=== PATIENT | female | born 1975 | race Two or more races ===

== ENCOUNTER 2020-11-28 14:17 | Emergency (ER) | payer SELFPAY ==
[2020-11-28] MEDS ORDERED: Sodium Chloride 0.9% 1,000 ML IV ONE (14:49)
[2020-11-28] MEDS ORDERED: Sodium Chloride 0.9% 2.5 ML Syringe FLUSH PRN (14:49)
[2020-11-28] MEDS ORDERED: Sodium Chloride 0.9% 10 ML Syringe FLUSH PRN (14:49)
--- NOTE | 2020-11-28 14:51 | EDM.PDOC ---
ED HPI GENERAL MEDICAL PROBLEM - General Chief Complaint: Abdominal Pain Stated Complaint: TROUBLE BREATHING Time Seen by Provider: 11/28/20 14:44 Source of Information: Reports: Patient History Limitations: Reports: No Limitations - History of Present Illness INITIAL COMMENTS - FREE TEXT/NARRATIVE: HISTORY AND PHYSICAL: History of present illness: The following information was obtained using a machine ii cutter tablet. The patient is a 44-year-old female that presents to the emergency department with complaints of abdominal pain and bloating that started 2 weeks ago. The patient states that after she eats she gets bloating and becomes short of breath and then becomes anxious. This morning the patient had a papaya shake became bloated and while in the car felt like she could not breathe. She also has a small pain on the left lower quad. The patient states that she does have some constipation and normally has hard stool. Patient denies any fever, chills, headache, change in vision, syncope or near syncope. Denies any chest pain, back pain, or cough. Denies any nausea, vomiting, diarrhea, or dysuria. Has not noted any blood in urine or stool. Patient has been eating and drinking appropriately. Review of systems: As per history of present illness and below otherwise all systems reviewed and negative. Past medical history: As per history of present illness and as reviewed below otherwise noncontributory. Surgical history: As per history of present illness and as reviewed below otherwise noncontributory. Social history: See social history for further information Family history: As per history of present illness and as reviewed below otherwise noncontributory. Physical exam: General: Well developed and well nourished. Alert and orientated x 3. Nontoxic in appearance and in no acute distress. Vital signs are stable and have been reviewed by me. Nursing notes were reviewed. HEENT: Atraumatic, normocephalic, pupils equal and reactive bilaterally, negative for conjunctival pallor or scleral icterus, mucous membranes moist, TMs normal bilaterally, throat clear, neck supple, nontender, trachea midline. No drooling or trismus noted. No meningeal signs. No hot potato voice noted. Lungs: Clear to auscultation bilaterally. No wheezes, rales, or rhonchi. Chest nontender. Normal work of breathing, no accessory muscles used. Heart: S1S2, regular rate and rhythm without overt murmur, gallops, or rubs. No JVD. No peripheral edema Abdomen: Soft, nondistended, nontender. Normoactive bowel sounds. Negative for masses or costovertebral tenderness. Skin: Intact, warm, dry. No lesions or rashes noted. Hematologic: No petechiae or purpra. Mucosa appropriate color and normal nail bed color and refill. Extremities: Atraumatic, moves all extremities per self without difficulty or deficits, negative for cords or calf pain. Neurovascular unremarkable. Neuro: Awake, alert, oriented. Cranial nerves II through XII unremarkable. Cerebellum unremarkable. Motor and sensory unremarkable throughout. Exam nonfocal. Psychiatric: Mood and affect are appropriate. Normal thought process. Answering questions appropriately. Notes: *This patient was seen and evaluated during the 2019 SARS-CoV-2 novel coronavirus pandemic period. Community viral transmission is ongoing at time of this encounter and the emergency department is operating under pandemic response procedures. Stated above the patient is a 44-year-old female who presents today with complaints of shortness of breath after she eats and starts to feel bloated. She states has been going on for about 2 weeks. She has no shortness of breath in the emergency room and does not feel bloated. Her exam was normal. She states that she feels bad knees while in the emergency room. I have ordered an abdominal work-up. The patient is agreeable with this plan. The patient's chest x-ray Impression: No acute cardiopulmonary process. The patient's CBC, CMP, lipase and UA were all unremarkable. CT abdomen pelvis IMPRESSION: 1. Grade 2 anterolisthesis of L5 on S1 due to bilateral spondylolysis, which appears chronic. 2. Otherwise no acute process to explain patient`s pain. Using the machine ii cutter tablet I discussed the findings with the patient. Instructed the patient I feel that her chronic constipation could be causing a gas buildup which then she feels full and bloated and becomes anxious which induces the shortness of breath. The patient stated that she has been under high stress and feels like this is adding to it. I spoke with the patient about needing good diet hygiene and to have regular bowel movements. The patient is agreeable to Metamucil and MiraLAX as needed. I have talked with the patient about today's findings, in addition to providing specific details for plan of care. Reassessment at the time of disposition demonstrates that the patient is in no acute distress. The patient is stable for discharge, counseling was provided and we discussed in great detail signs and symptoms that would prompt them to return to the Emergency Department. Medication, follow up and supportive care measures were reviewed and discussed. Voices understanding and is agreeable to plan of care. Denies any further questions or concerns at this time. Diagnostics: CBC, CMP, lipase, UA, CT abdomen pelvis, CXR Impression: Constipation, bloated abdomen Plan: 1. You were evaluated today on an emergent basis. Your your complaints of shortness of breath after eating when becoming bloated. Your blood work was within normal limits. Your urinalysis did not show an infection. Your chest x- ray was normal. Your abdominal CT was normal. With your description of hard stools, I would say you have chronic constipation. I would like for you to take Metamucil or some other fiber source on a daily basis. You might need to take a stool softener such as MiraLAX to help facilitate having a normal stool. Once you are having normal formed soft stools and you still have the feeling of the bloating after eating followed by shortness of breath you will need to follow-up with a service coordinator elderly facility. But first you must get your chronic constipation under control. As we discussed anxiety can increase your constipation. 2. You can alternate Tylenol and ibuprofen as needed for pain and fever management. 3. We encourage you to follow up with your primary care provider and/or recommended specialist in the next few days for re-evaluation and further care/management. 4. If your symptoms should worsen, new symptoms develop or any of the signs and symptoms we discussed should arise please return to the emergency room or call 911 (if needed). Definitive disposition and diagnosis as appropriate pending reevaluation and review of above. - Related Data Allergies Allergy/AdvReac Type Severity Reaction Status Date / Time No Known Allergies Allergy Verified 11/28/20 14:51 Home Meds: Home Meds . [No Known Home Meds] 11/28/20 [History] ED ROS GENERAL - Review of Systems Review Of Systems: Comprehensive ROS is negative, except as noted in HPI. ED EXAM, GI/ABD - Physical Exam Exam: See Below (See dictation) Course - Vital Signs Last Recorded V/S: Last Vital Signs Temp 96.1 F L 11/28/20 14:46 Pulse 68 11/28/20 17:54 Resp 19 11/28/20 17:16 BP 144/85 H 11/28/20 17:54 Pulse Ox 99 11/28/20 17:54 - Orders/Labs/Meds Orders: Active Orders 24 hr Category Date Time Status Saline Lock Insert [OM.PC] Stat Oth 11/28/20 14:49 Ordered Labs: Laboratory Tests 11/28/20 11/28/20 11/28/20 Range/Units 15:11 15:11 17:13 WBC 7.49 (4.0-11.0) K/uL RBC 4.74 (4.30-5.90) M/uL Hgb 13.7 (12.0-16.0) g/dL Hct 40.3 (36.0-46.0) % MCV 85.0 (80.0-98.0) fL MCH 28.9 (27.0-32.0) pg MCHC 34.0 (31.0-37.0) g/dL RDW Std Deviation 37.5 (28.0-62.0) fl RDW Coeff of Eun 12 (11.0-15.0) % Plt Count 255 (150-400) K/uL MPV 10.60 (7.40-12.00) fL Neut % (Auto) 53.4 (48.0-80.0) % Lymph % (Auto) 38.5 (16.0-40.0) % Toombs % (Auto) 6.5 (0.0-15.0) % Eos % (Auto) 1.1 (0.0-7.0) % Baso % (Auto) 0.5 (0.0-1.5) % Neut # (Auto) 4.0 (1.4-5.7) K/uL Lymph # (Auto) 2.9 H (0.6-2.4) K/uL Toombs # (Auto) 0.5 (0.0-0.8) K/uL Eos # (Auto) 0.1 (0.0-0.7) K/uL Baso # (Auto) 0.0 (0.0-0.1) K/uL Nucleated RBC % 0.0 /100WBC Nucleated RBCs # 0 K/uL Sodium 142 (136-145) mmol/L Potassium 3.7 (3.5-5.1) mmol/L Chloride 107 (98-107) mmol/L Carbon Dioxide 22.5 (21.0-32.0) mmol/L BUN 17 (7.0-18.0) mg/dL Creatinine 0.9 (0.6-1.0) mg/dL Est Cr Clr Drug Dosing TNP Estimated GFR (MDRD) > 60.0 ml/min Glucose 90 (74-106) mg/dL Calcium 9.0 (8.5-10.1) mg/dL Total Bilirubin 0.8 (0.2-1.0) mg/dL AST 31 (15-37) IU/L ALT 37 (14-63) IU/L Alkaline Phosphatase 78 (46-116) U/L Total Protein 7.5 (6.4-8.2) g/dL Albumin 4.0 (3.4-5.0) g/dL Globulin 3.5 (2.6-4.0) g/dL Albumin/Globulin Ratio 1.1 (0.9-1.6) Lipase 181 (73-393) U/L Urine Color YELLOW Urine Appearance CLEAR Urine pH 6.5 (5.0-8.0) Ur Specific [place] 1.010 (1.001-1.035) Urine Protein NEGATIVE (NEGATIVE) mg/dL Urine Glucose (UA) NEGATIVE (NEGATIVE) mg/dL Urine Ketones 15 H (NEGATIVE) mg/dL Urine Occult Blood NEGATIVE (NEGATIVE) Urine Nitrite NEGATIVE (NEGATIVE) Urine Bilirubin NEGATIVE (NEGATIVE) Urine Urobilinogen 0.2 (<2.0) EU/dL Ur Leukocyte Esterase NEGATIVE (NEGATIVE) Urine RBC 0-1 (0-2/HPF) Urine WBC 0-1 (0-5/HPF) Ur Epithelial Cells RARE (NONE-FEW) Urine Bacteria RARE (NEGATIVE) Meds: Medications Discontinued Medications Generic Name Dose Route Start Last Admin Trade Name Freq PRN Reason Stop Dose Admin Sodium Chloride 1,000 mls @ 999 mls/hr 11/28/20 14:49 11/28/20 15:08 Normal Saline IV 11/28/20 15:49 999 mls/hr BOLUS ONE Administration Iopamidol 100 ml 11/28/20 16:38 11/28/20 16:38 Iopamidol 755 Mg/Ml 500 Ml Multipack Bottle IVPUSH 11/28/20 16:39 100 ml ONETIME ONE Administration Sodium Chloride 10 ml 11/28/20 14:49 11/28/20 15:09 Sodium Chloride 0.9% 10 Ml Syringe FLUSH 10 ml ASDIRECTED PRN Administration Keep Vein Open Sodium Chloride 2.5 ml 11/28/20 14:49 11/28/20 15:09 Sodium Chloride 0.9% 2.5 Ml Syringe FLUSH 2.5 ml ASDIRECTED PRN Administration Keep Vein Open Departure - Departure Time of Disposition: 17:34 Disposition: Home, Self-Care 01 Condition: Good Clinical Impression: Bloated abdomen Constipation Qualifiers: Constipation type: unspecified constipation type Qualified Code(s): K59.00 - Constipation, unspecified - Discharge Information *PRESCRIPTION DRUG MONITORING PROGRAM REVIEWED*: Not Applicable *COPY OF PRESCRIPTION DRUG MONITORING REPORT IN PATIENT EFRA: Not Applicable Instructions: Constipation, Adult Referrals: PCP,None [Primary Care Provider] - Forms: ED Department Discharge Additional Instructions: The following information is given to patients seen in the emergency department who are being discharged to home. This information is to outline your options for follow-up care. We provide all patients seen in our emergency department with a follow-up referral. The need for follow-up, as well as the timing and circumstances, are variable depending upon the specifics of your emergency department visit. If you don't have a primary care physician on staff, we will provide you with a referral. We always advise you to contact your personal physician following an emergency department visit to inform them of the circumstance of the visit and for follow-up with them and/or the need for any referrals to a consulting specialist. The emergency department will also refer you to a specialist when appropriate. This referral assures that you have the opportunity for follow-up care with a specialist. All of these measure are taken in an effort to provide you with optimal care, which includes your follow-up. Under all circumstances we always encourage you to contact your private physician who remains a resource for coordinating your care. When calling for follow-up care, please make the office aware that this follow-up is from your recent emergency room visit. If for any reason you are refused follow-up, please contact the [facility] Emergency Department at and asked to speak to the emergency department charge nurse. Kevin Watson [facility] - [facility] [address] [place], [place] [address], [place] [address] [facility] [address] [place] [address] Plan: 1. Usted fue evaluado hoy de forma emergente. Azeem quejas de dificultad para respirar despus de comer cuando se hincha. Colindres anlisis de tara estuvo dentro de los lmites normales. Colindres anlisis de orina no mostr meli infeccin. Colindres radiografa de trax fue normal. Colindres TC abdominal fue normal. Con colindres descripcin de heces duras, dira que tiene estreimiento crnico. Me gustara que tomara Metamucil o alguna otra jerica de fibra a diario. Es posible que deba everett un ablandador de heces rodolfo MiraLAX para facilitar la evacuacin normal. Meli vez que tenga heces blandas de formacin normal y todava tenga la sensacin de hinchazn despus de comer seguida de dificultad para respirar, deber consultar con un gastroenterlogo. Vlaidmir matthew debe controlar colindres estreimiento crnico. [place] comentamos, la ansiedad puede aumentar colindres estreimiento. 2. Puede alternar Tylenol e ibuprofeno segn sea necesario para controlar el dolor y la fiebre. 3. Le recomendamos que bekah un seguimiento con colindres proveedor de atencin primaria y / o especialista recomendado en los prximos ovalles para meli reevaluacin y atencin / manejo adicional. 4. Si azeem sntomas empeoran, aparecen nuevos sntomas o surge alguno de los signos y sntomas que discutimos, regrese a la minesh de emergencias o llame al 911 (si es necesario). Plan: 1. You were evaluated today on an emergent basis. Your your complaints of shortness of breath after eating when becoming bloated. Your blood work was within normal limits. Your urinalysis did not show an infection. Your chest x- ray was normal. Your abdominal CT was normal. With your description of hard stools, I would say you have chronic constipation. I would like for you to take Metamucil or some other fiber source on a daily basis. You might need to take a stool softener such as MiraLAX to help facilitate having a normal stool. Once you are having normal formed soft stools and you still have the feeling of the bloating after eating followed by shortness of breath you will need to follow-up with a service coordinator elderly facility. But first you must get your chronic constipation under control. As we discussed anxiety can increase your constipation. 2. You can alternate Tylenol and ibuprofen as needed for pain and fever management. 3. We encourage you to follow up with your primary care provider and/or recommended specialist in the next few days for re-evaluation and further care/management. 4. If your symptoms should worsen, new symptoms develop or any of the signs and symptoms we discussed should arise please return to the emergency room or call 911 (if needed). Sepsis Event Note (ED) - Focused Exam Vital Signs: Vital Signs Temp Pulse Resp BP Pulse Ox 11/28/20 17:54 68 144/85 H 99 11/28/20 17:16 63 19 138/84 100 11/28/20 16:10 65 20 96 11/28/20 15:30 65 20 96 11/28/20 14:46 96.1 F L 88 15 136/84 100 - My Orders Last 24 Hours: My Active Orders 11/28/20 14:49 Saline Lock Insert [OM.PC] Stat - Assessment/Plan Last 24 Hours: My Active Orders 11/28/20 14:49 Saline Lock Insert [OM.PC] Stat
[2020-11-28 15:59] LABS: BLOOD UREA NITROGEN,BUN 17 mg/dL (7.0-18.0); CARBON DIOXIDE,CO2 22.5 mmol/L (21.0-32.0); CHLORIDE,CL 107 mmol/L (98-107); GLUCOSE RANDOM 90 mg/dL (74-106); LIPASE 181 U/L (73-393); POTASSIUM,K 3.7 mmol/L (3.5-5.1); SODIUM,NA 142 mmol/L (136-145)
[2020-11-28] MEDS ORDERED: Iopamidol 755 MG/ML 500 ML Multipack Bottle IVPUSH ONE (16:38)
--- NOTE | 2020-11-28 16:52 | CR ---
Indication: Dyspnea. Technique: PA and lateral views the chest. Comparison: None Findings: The heart is normal in size. The lungs are clear. No infiltrate, pleural effusion, or pneumothorax is identified. Impression: No acute cardiopulmonary process Dictated by Fariha Berrios MD @ 11/28/2020 4:51:[address] Fariha Berrios @ Nov 28 2020 4:51PM
--- NOTE | 2020-11-28 17:05 | CT ---
INDICATION: Epigastric pain, left lower quadrant pain TECHNIQUE: CT abdomen and pelvis acquired with IV contrast. Approximately 100 cc of Isovue 370 contrast was given intravenously. COMPARISON: None FINDINGS: The visualized portions of the lung bases are clear. The liver, spleen, pancreas and adrenal glands are unremarkable. The gallbladder is nondistended. The kidneys enhance symmetrically without hydronephrosis. The bladder is minimally distended and unremarkable. There are no dilated loops of small bowel to suggest obstruction.The appendix is normal.There is no intraperitoneal free air or fluid. There is grade 2 anterolisthesis of L5 on S1 due to bilateral spondylolysis, which appears chronic. IMPRESSION: 1. Grade 2 anterolisthesis of L5 on S1 due to bilateral spondylolysis, which appears chronic. 2. Otherwise no acute process to explain patient`s pain. Please note that all CT scans at this facility use dose modulation, iterative reconstruction, and/or weight-based dosing when appropriate to reduce radiation dose to as low as reasonably achievable. Dictated by Angely Barriga MD @ 11/28/2020 5:03:[address] Angely Barriga @ Nov 28 2020 5:03PM
--- NOTE | 2020-11-28 18:33 | PCM.EKG ---
#1 Interpretation EKG Interpretation Comments: EKG: As interpreted by ER physician: Gurpreet: Nonspecific ST-T wave abnormalities Normal axis No evidence of ST elevation MD Normal sinus rhythm heart rate of 66
== END 2020-11-28 17:56 | disposition home or self-care (01) ==
LOC: MW.ED 14:17
DX: K59.00 Constipation, unspecified (principal)
CPT/HCPCS: 36415; 71046; 74177; 80053; 81001; 83690; 85025; 93005; 99285; J7030; Q9967; 99283